=== PATIENT | male | born 1950 | race Caucasian/White ===

== ENCOUNTER 2016-07-14 04:41 | Inpatient (IN) | payer OTHER, MEDICARE ==
[~2016-07-14] VITALS: Ht 172.7 cm; Wt 73.0 kg
[2016-07-14] VITALS (7 sets, daily range): BP systolic 126–242; BP diastolic 73–136; PULSE 67–92; RESP 14–26; TEMP 97.7–98.2; O2SAT 95–99
[~2016-07-14 04:41] MED LIST: ASPI1TAB69 PO; BUSP5TAB PO; CLON.2 PO; LISI-515 PO; MULTCAP14
--- NOTE | 2016-07-14 05:39 | PD ---
HPI Chief Complaint: Neuro Symptoms/ Deficits Time Seen by Provider: 05:03 Travel History International Travel<30 days: No Contact w/Intl Traveler<30days: No Traveled to known affect area: No History of Present Illness HPI 66yo M with PMH of HTN here with c/o left arm and leg weakness and numbness for 3 days but worst for the last 2 hours. Pt also with some numbness in front of left ear. States he knew he had a stroke from a CT scan but it was a long time ago. Denies any fever, chest pain, sob, n/v, abdominal pain. Pt takes lisinopril and clonidine for HTN. PFSH Past Medical History Cancer: No Diminished Hearing: No Endocrine: No Genitourinary: No Hypertension: Yes Immune Disorder: No Musculoskeletal: No Neurologic: No Psychiatric: No Reproductive: No Respiratory: No Tetanus Vaccination: Unknown Influenza Vaccination: Yes Past Surgical History Surgical History: No Previous Surgery Social History Alcohol Use: Yes (occ) Tobacco Use: No Substance Use: No Allergies-Medications (Allergen,Severity, Reaction): Coded Allergies: No Known Allergies (Unverified , 12/22/15) Reported Meds & Prescriptions Reported Meds & Active Scripts Active Catapres (Clonidine) 0.2 Mg Tab 0.2 Mg PO BID Lisinopril 20 Mg Tab 20 Mg PO Q12HR Buspirone (Buspirone HCl) 5 Mg Tab 7.5 Mg PO BID Review of Systems Except as stated in HPI: all other systems reviewed are Neg Physical Exam Narrative GENERAL: 66yo M not in distress. SKIN: Focused skin assessment warm/dry. HEAD: Atraumatic. Normocephalic. EYES: Pupils equal and round at 3mm bilaterally. EOMI. No scleral icterus. No injection or drainage. CARDIOVASCULAR: Regular rate and rhythm. No murmur appreciated. RESPIRATORY: No accessory muscle use. Clear to auscultation. Breath sounds equal bilaterally. GASTROINTESTINAL: Abdomen soft, non-tender, nondistended. Hepatic and splenic margins not palpable. MUSCULOSKELETAL: No obvious deformities. No clubbing. No cyanosis. No edema. NEUROLOGICAL: Awake and alert. No obvious cranial nerve deficits. Motor grossly within normal limits. Normal speech. Decreased sensation in left arm and leg. Decreased sensation in left preauricular space. PSYCHIATRIC: Appropriate mood and affect; insight and judgment normal. Data Data Last Documented VS Vital Signs Date Time Temp Pulse Resp B/P Pulse Ox O2 Delivery O2 Flow Rate FiO2 07/14/16 06:28 86 14 192/98 98 Room Air 07/14/16 04:[address] Brain W/O Iv Contrast(Rout) (07/14/16 ) Complete Blood Count With Diff (07/14/16 05:15) Basic Metabolic Panel (Bmp) (07/14/16 05:15) Prothrombin Time / Inr (Pt) (07/14/16 05:15) Act Partial Throm Time (Ptt) (07/14/16 05:15) Lisinopril (Prinivil) (07/14/16 06:30) Admit Order (Ed Use Only) (07/14/16 06:52) Aspirin (Aspirin) (07/14/16 07:00) Consult Neurology (07/14/16 ) Labs Laboratory Tests Test 07/14/16 05:20 White Blood Count 8.3 TH/MM3 Red Blood Count 5.28 MIL/MM3 Hemoglobin 17.2 GM/DL Hematocrit 50.4 % Mean Corpuscular Volume 95.5 FL Mean Corpuscular Hemoglobin 32.5 PG Mean Corpuscular Hemoglobin 34.1 % Concent Red Cell Distribution Width 12.4 % Platelet Count 188 TH/MM3 Mean Platelet Volume 8.5 FL Neutrophils (%) (Auto) 65.7 % Lymphocytes (%) (Auto) 23.3 % Monocytes (%) (Auto) 9.2 % Eosinophils (%) (Auto) 1.3 % Basophils (%) (Auto) 0.5 % Neutrophils # (Auto) 5.4 TH/MM3 Lymphocytes # (Auto) 1.9 TH/MM3 Monocytes # (Auto) 0.8 TH/MM3 Eosinophils # (Auto) 0.1 TH/MM3 Basophils # (Auto) 0.0 TH/MM3 CBC Comment DIFF FINAL Differential Comment Prothrombin Time 11.6 SEC Prothromb Time International 1.0 RATIO Ratio Activated Partial 27.5 SEC Thromboplast Time Sodium Level 139 MEQ/L Potassium Level 4.1 MEQ/L Chloride Level 104 MEQ/L Carbon Dioxide Level 26.3 MEQ/L Anion Gap 9 MEQ/L Blood Urea Nitrogen 11 MG/DL Creatinine 0.86 MG/DL Estimat Glomerular Filtration 89 ML/MIN Rate Random Glucose 116 MG/DL Calcium Level 9.1 MG/DL MDM Medical Decision Making Medical Screen Exam Complete: Yes Emergency Medical Condition: Yes Differential Diagnosis CVA vs. hypertensive emergency vs. electrolyte abnormality Narrative Course 66yo M with left arm and leg weakness and numbness for 3 days but worst 2 hours prior to coming to the ED. Initial BP was 242/136 and repeat BP was 192/98. Pt states he takes clonidine 0.2mg BID and lisinopril 20mg BID and took his clonidine this morning but not lisinopril. Will give him his morning dose of lisinopril. Labs reviewed, no leukocytosis. BMP unremarkable. Glucose 116. Discussed with Dr. Orona and accepted to his service for CVA work up. Diagnosis Primary Impression: TIA (transient ischemic attack) Qualified Code: G45.9 - Transient cerebral ischemia, unspecified type Admitting Information Admitting Physician Requests: Mirlande Pardo DO Jul 14, 2016 05:38
[2016-07-14 06:16] LABS: AUTOMATED NEUTROPHIL # 5.4 TH/MM3 (1.8-7.7); BASOPHIL % 0.5 % (0.0-2.0); EOSINOPHIL # 0.1 TH/MM3 (0-0.4); EOSINOPHIL % 1.3 % (0.0-4.0); HEMATOCRIT 50.4 % (39.0-51.0); HEMO FLAGS DIFF FINAL; LYMPH % 23.3 % (9.0-44.0); LYMPHOCYTE # 1.9 TH/MM3 (1.0-4.8); MEAN CELL VOLUME 95.5 FL (80.0-100.0); MEAN CORPUSCULAR HEMOGLOBIN 32.5 PG (27.0-34.0); MEAN CORPUSCULAR HGB CONC 34.1 % (32.0-36.0); MONO % 9.2 % (0.0-8.0); NEUT % 65.7 % (16.0-70.0); PLATELET COUNT 188 TH/MM3 (150-450); RED BLOOD COUNT 5.28 MIL/MM3 (4.50-5.90); RED CELL DISTRIBUTION WIDTH 12.4 % (11.6-17.2); WHITE BLOOD COUNT 8.3 TH/MM3 (4.0-11.0)
[2016-07-14 06:23] LABS: APTT (PATIENT) 27.5 SEC (24.3-30.1); PROTHROMBIN TIME - PATIENT 11.6 SEC (9.8-11.6)
[2016-07-14 06:28] LABS: BICARBONATE 26.3 MEQ/L (21.0-32.0); POTASSIUM 4.1 MEQ/L (3.5-5.1)
[2016-07-14] MEDS ORDERED: LISINOPRIL 20 MG TAB PO ONE (06:30)
--- NOTE | 2016-07-14 06:44 | RADRPT ---
EXAM DATE/TIME: 07/14/2016 05:56 [facility] COMPARISON: CT BRAIN W/O CONTRAST, December 22, 2015, 15:55. INDICATIONS : Left side facial weakness. RADIATION DOSE: 41.46 CTDIvol (mGy) MEDICAL HISTORY : Hypertension. SURGICAL HISTORY : None. ENCOUNTER: Initial ACUITY: 1 day PAIN SCALE: 0/10 LOCATION: cranial TECHNIQUE: Multiple contiguous axial images were obtained of the head. Using automated exposure control and adj ustment of the mA and/or kV according to patient size, radiation dose was kept as low as reasonably a chievable to obtain optimal diagnostic quality images. FINDINGS: CEREBRUM: The ventricles are normal for age. No evidence of midline shift, mass lesion, hemorrhage or acute in farction. 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 No extra-axial fluid collections are seen. POSTERIOR FOSSA: The cerebellum and brainstem are intact. The 4th ventricle is midline. The cerebellopontine angle i s unremarkable. EXTRACRANIAL: The visualized portion of the orbits is intact. SKULL: The calvaria is intact. No evidence of skull fracture. CONCLUSION: Normal examination. No evidence of acute hemorrhage or edema Helder Newby MD on July 14, 2016 at 6:41 Board Certified Radiologist. This report was verified electronically.
[2016-07-14] MEDS ORDERED: ASPIRIN 325 MG TAB PO ONE (07:00)
[2016-07-14] MEDS ORDERED: SODIUM CHLORIDE 0.9% FLUSH 5 ML FLUSH IV FLUSH PRN ×2 (07:15→12:15)
[2016-07-14] MEDS ORDERED: DEXTROSE 50% IN WATER 50 ML VIAL(D50) IV PUSH PRN ×2 (07:15→12:15)
[2016-07-14] MEDS ORDERED: LABETALOL HCL 100 MG/20 ML VIAL IV PRN (07:15)
[2016-07-14] MEDS ORDERED: ENALAPRILAT 1.25 MG/ML VIAL IV PRN (07:15)
[2016-07-14] MEDS ORDERED: GLUCAGON 1 MG/ML VIAL OTHER PRN ×2 (07:15→12:15)
[2016-07-14] MEDS ORDERED: SODIUM CHLORIDE 0.9% FLUSH 5 ML FLUSH IV FLUSH SCH (09:00)
--- NOTE | 2016-07-14 10:33 | RADRPT ---
EXAM DATE/TIME: 07/14/2016 10:05 [facility] COMPARISON: No previous studies available for comparison. INDICATIONS : Left sided weakness. CVA. MEDICAL HISTORY : Hypertension. SURGICAL HISTORY : None. ENCOUNTER: Subsequent ACUITY: 1 day PAIN SCORE: 0/10 LOCATION: head. Please note a normal MRA of the brain does not entirely exclude the possibility of a small aneurysm, nor the possibility of distal intracranial vessel disease. TECHNIQUE: 3D time of flight MRA was performed. Source images, multiplanar STS MIP, and 3D volume MIP reconstru ctions were reviewed. FINDINGS: Both distal internal carotid arteries are widely patent. The right vertebral artery is not identified. The left vertebral is patent. The basilar statement. Th ere is an area of mild stenosis at the junction of the left vertebral with the basilar. The anterior and middle cerebral circulation is patent bilaterally. Both posterior cerebral arteries feed predominantly from the posterior communicating arteries. CONCLUSION: 1. Nonvisualization of the right vertebral. 2. Mild stenosis at the junction of the left vert and basilar. 3. The intracranial circulation appears patent. Vicente Bowens MD on July 14, 2016 at 10:28 Board Certified Radiologist. This report was verified electronically.
[2016-07-14] MEDS ORDERED: INSULIN ASPART SUPPLEMENTAL SCALE SQ SCH (11:00)
[2016-07-14] MEDS: ASPIRIN 325 MG TAB PO SCH (11:07)
[2016-07-14] MEDS: HEPARIN SODIUM - SQ 10,000 UNITS/ML VIAL SQ SCH ×2 (11:08→16:00)
--- NOTE | 2016-07-14 11:23 | HHI.HP ---
[facility] Non-Staff Admission Diagnosis CVA Diagnoses: Travel History International Travel<30 Days: No Contact w/Intl Traveler <30 Da: No Traveled to Known Affected Are: No History of Present Illness Mr. Levy is a 66-year-old male. He is here today secondary to an onset of left -sided weakness 3 days ago that worsened 2 hours prior to arrival to ER. The weakness is more related to diffuse numbness rather than we can motor function. She has felt unsteady on his feet. She does report a prior history of CVA but he was unaware of this and its only seen on imaging, without knowledge of when it occurred given he never had any symptoms. He was aware of this prior to this ER visit. He denies any alcohol use or illicit drug use. He has used tobacco but quit smoking 25 years ago. His only baseline medical condition is hypertension. He reports no surgeries or other medical conditions. When seen he is continuing to have numbness slightly more significantly at his left arm and left leg. She also reports left groin pain and left axilla pain. No complaints of dizziness. Nose changes in visual abilities. No headache. Blood pressures are elevated. Review of Systems Constitutional: DENIES: Diaphoretic episodes, Fatigue, Fever, Chills, Dizziness Endocrine: DENIES: Heat/cold intolerance, Polydipsia Eyes: DENIES: Blurred vision, Diplopia, Eye pain, Vision loss Ears, nose, mouth, throat: DENIES: Hearing loss, Vertigo Respiratory: DENIES: Cough, Wheezing, Shortness of breath Cardiovascular: DENIES: Chest pain, Palpitations, Syncope Gastrointestinal: DENIES: Abdominal pain, Black stools Musculoskeletal: DENIES: Joint pain, Muscle aches Integumentary: DENIES: Abnormal pigmentation, Nail changes Hematologic/lymphatic: DENIES: Bruising Immunologic/allergic: DENIES: Eczema Neurologic: COMPLAINS OF: Abnormal gait, Localized weakness, Paresthesias Psychiatric: DENIES: Anxiety, Confusion Past Family Social History Past Medical History Hypertension Past Surgical History None Reported Medications Reported Meds & Active Scripts Active Catapres (Clonidine) 0.2 Mg Tab 0.2 Mg PO BID Lisinopril 20 Mg Tab 20 Mg PO Q12HR Buspirone (Buspirone HCl) 5 Mg Tab 7.5 Mg PO BID Allergies: Coded Allergies: No Known Allergies (Unverified , 12/22/15) Family History None Social History Past history of smoking, not currently smoking. Quit 25 years ago. No alcohol use No drug abuse Physical Exam Vital Signs Vital Signs Date Time Temp Pulse Resp B/P Pulse Ox O2 Delivery O2 Flow Rate FiO2 07/14/16 09:20 97 21 07/14/16 07:44 76 16 190/99 99 Room Air 07/14/16 06:28 86 14 192/98 98 Room Air 07/14/16 04:46 16 07/14/16 04:44 97.7 92 16 242/136 98 Physical Exam GENERAL: NAD, A&Ox3 SKIN: Warm and dry. HEAD: Normocephalic. EYES: No scleral icterus. No injection or drainage. NECK: Supple, trachea midline. No JVD or lymphadenopathy. CARDIOVASCULAR: Regular rate and rhythm without murmurs, gallops, or rubs. RESPIRATORY: Breath sounds equal bilaterally. No accessory muscle use. GASTROINTESTINAL: Abdomen soft, non-tender, nondistended. MUSCULOSKELETAL: No cyanosis, or edema. NEURO: Sensation on left side including face, arm, and leg are decreased compared to right. Coordination is slightly off on left. No loss of strength that left side compared to the right. Laboratory Laboratory Tests Test 07/14/16 05:20 White Blood Count 8.3 Red Blood Count 5.28 Hemoglobin 17.2 Hematocrit 50.4 Mean Corpuscular Volume 95.5 Mean Corpuscular Hemoglobin 32.5 Mean Corpuscular Hemoglobin 34.1 Concent Red Cell Distribution Width 12.4 Platelet Count 188 Mean Platelet Volume 8.5 Neutrophils (%) (Auto) 65.7 Lymphocytes (%) (Auto) 23.3 Monocytes (%) (Auto) 9.2 Eosinophils (%) (Auto) 1.3 Basophils (%) (Auto) 0.5 Neutrophils # (Auto) 5.4 Lymphocytes # (Auto) 1.9 Monocytes # (Auto) 0.8 Eosinophils # (Auto) 0.1 Basophils # (Auto) 0.0 CBC Comment DIFF FINAL Differential Comment Prothrombin Time 11.6 Prothromb Time International 1.0 Ratio Activated Partial 27.5 Thromboplast Time Sodium Level 139 Potassium Level 4.1 Chloride Level 104 Carbon Dioxide Level 26.3 Anion Gap 9 Blood Urea Nitrogen 11 Creatinine 0.86 Estimat Glomerular Filtration 89 Rate Random Glucose 116 Calcium Level 9.1 Result Diagram: 07/14/1651907/14/16519 Assessment and Plan Problem List: (1) Hypertensive urgency ICD Code: I16.0 Status: Acute (2) Hyponatremia ICD Code: E87.1 Status: Acute (3) Left hemiparesis ICD Code: G81.94 Status: Acute Assessment and Plan Assessment and plan 66-year-old male with onset of left hemiparesis and hypertensive urgency Acute Left hemiparesis Possible acute CVA MRI Carotid ultrasound Echocardiogram Avoiding antihypertensives Avoiding blood thinners Begin physical therapy Hypertensive urgency Allow for elevations in blood pressure until possible CVA is evaluated. If no CVA is present will resume blood pressure treatments and regain blood pressure control. DVT prophylaxis SCDs Physician Certification 2 Midnight Certification Type: Admission for Inpatient Services Order for Inpatient Services The services are ordered in accordance with Medicare regulations or non- Medicare payer requirements, as applicable. In the case of services not specified as inpatient-only, they are appropriately provided as inpatient services in accordance with the 2-midnight benchmark. Estimated LOS (days): 2 days is the estimated time the patient will need to remain in the hospital, assuming treatment plan goals are met and no additional complications. Post-Hospital Plan: Home Vicente Ramos MD Jul 14, 2016 11:23 am
--- NOTE | 2016-07-14 12:08 | RADRPT ---
EXAM DATE/TIME: 07/14/2016 09:36 [facility] COMPARISON: No previous studies available for comparison. INDICATIONS : Cerebrovascular accident. MEDICAL HISTORY : Hypertension. Left arm and leg weakness. SURGICAL HISTORY : None. ENCOUNTER: Initial ACUITY: 4-6 days PAIN SCORE: 4/10 LOCATION: Bilateral neck PEAK SYSTOLIC VELOCITIES (cm/sec): ICA/CCA RATIO: Right: 2.6 Left: 1.2 ICA: Right: 212 Left: 110 CCA: Right: 104 Left: 91 ECA: Right: 154 Left: 130 VERTEBRAL: Right: 41 antegrade Left: 77 antegrade Elevated flow velocities and ICA/CCA ratios have been found to correlate with increased degrees of vessel stenosis, calculated as percentage of diameter relative to a normal segment of distal ICA/CCA FINDINGS: RIGHT CAROTID: Bulky noncalcified plaque extending from the bulb to the origin of the internal carotid artery. Resul tant moderate, 50-69%, stenosis of the proximal internal carotid artery. There is also mild to modera te stenosis of the external carotid artery origin. LEFT CAROTID: Noncalcified plaque in the carotid bulb and distal common carotid artery. With minimal involvement of the internal and external carotid artery origins. Resultant, mild, estimated 50% stenosis of the int ernal carotid artery origin. There is also mild stenosis of the external carotid origin. VERTEBRAL ARTERIES: Antegrade flow is seen in both vertebral arteries. MISCELLANEOUS: None. CONCLUSION: 1. Moderate, 50-69%, stenosis of the proximal right internal carotid artery secondary to extension of bulky noncalcified plaque from the bulb. 2. Mild, less than 50%, stenosis of the proximal left internal carotid artery secondary to mixed plaq ue. 3. Mild left and mild to moderate right stenosis of the external carotid origins. Keanu Page MD on July 14, 2016 at 11:02 Board Certified Radiologist. This report was verified electronically.
[2016-07-14] MEDS ORDERED: CHLORHEXIDINE GLUCONATE 2 % 1 PACK (2 CLOTHS)(extra cloths) TOPICAL PRN (12:15)
--- NOTE | 2016-07-14 12:17 | RADRPT ---
EXAM DATE/TIME: 07/14/2016 10:05 [facility] COMPARISON: No previous studies available for comparison. INDICATIONS : Left sided weakness. CVA. MEDICAL HISTORY : Hypertension. SURGICAL HISTORY : None. ENCOUNTER: Subsequent ACUITY: 2 day PAIN SCORE: 0/10 LOCATION: head. TECHNIQUE: Multiplanar, multisequence MRI of the brain was performed without contrast. FINDINGS: CEREBRUM: The ventricles are normal for age. No evidence of midline shift, mass lesion, hemorrhage or acute in farction. No extraaxial fluid collections are seen. The pituitary gland and suprasellar cistern are normal in configuration. WHITE MATTER: Scattered foci of high flair signal involving the periventricular white matter of both cerebral hemis pheres. POSTERIOR FOSSA: The cerebellum and brainstem are intact. The 4th ventricle is midline. The cerebellopontine angle is unremarkable. The cerebellar tonsils are normal in position. DIFFUSION IMAGING: No focal areas of restricted diffusion are seen. No evidence of acute infarction. EXTRACRANIAL: The visualized portions of the orbits are unremarkable. Mucosal thickening is seen involving the righ t maxillary sinus resulting in near complete opacification. The remaining paranasal sinuses and masto id air cells are clear. CONCLUSION: 1. No acute intracranial abnormality. 2. Chronic small vessel ischemic change. 3. Right maxillary sinus disease. Kamar Jha Jr., MD on July 14, 2016 at 12:11 Board Certified Radiologist. This report was verified electronically.
--- NOTE | 2016-07-14 12:44 | MB ---
cc: HENRIK SPEAR M.D. DATE OF CONSULTATION: 07/14/2016 REASON FOR CONSULTATION Rule out stroke. HISTORY OF PRESENT ILLNESS Mr. Levy is a very nice 66-year-old man, who three days ago began to notice numbness involving the left arm and left leg as well as part of the left face. He thought he had some weakness on the left side but felt this might have been only secondary to the numbness. When he would take his antihypertensive medication he states the symptoms got better. He was showing some signs of progression earlier today as well. PAST MEDICAL HISTORY He has a history of hypertension. No prior history of stroke or TIA. MEDICATIONS 1. Catapres. 2. Lisinopril. 3. Buspirone. ALLERGIES None known. SOCIAL HISTORY No alcohol use or drug abuse. He stopped smoking 25 years ago. NEUROLOGIC EXAMINATION VITAL SIGNS: The blood pressure is 203/99, pulse 76, respirations 16, temperature 97 degrees. Higher cortical functions are normal. Cranial nerves intact. Motor exam he has 5/5 strength of all groups in the upper and lower extremities. There is no drift. Fine motor skills are normal. Sensory exam is subjectively diminished left arm and left leg to soft touch compared with right, reflexes are 2+ symmetric with no Babinski sign present. IMAGING STUDIES MRI of the brain is pending. Carotid ultrasound pending. CT of the brain showed no acute change. MR angiogram of the brain: Nonvisualization of the right vertebral artery, mild stenosis on the left vertebral basilar juncture, otherwise normal. LABORATORY DATA White count 8300, hemoglobin 17.2, hematocrit 50.4%, platelets 188,000. PT 11.6, INR 1, APTT 27.5. Sodium is 139, potassium 4.1, chloride 104, CO2 26, BUN is 11, creatinine 0.86, GFR is 89, glucose 116. IMPRESSION Possible lacunar stroke. RECOMMENDATIONS Will follow up on the MRI of the brain and also check carotid ultrasound, echocardiogram. Continue aspirin which has been started at 325 mg daily. Will check a lipid panel as well. MD MIR Blanco/YUMIKO /12:06 PM /12:30 PM
[2016-07-14] MEDS ORDERED: cloNIDine HCL 0.1 MG TAB PO PRN (13:15)
[2016-07-14] MEDS ORDERED: LISINOPRIL 20 MG TAB PO SCH (13:15)
[2016-07-14] MEDS ORDERED: PILL SPLITTER OTHER PRN (13:15)
[2016-07-14] MEDS: busPIRone HCL 5 MG TAB PO SCH ×2 (13:37→20:32)
[2016-07-14] MEDS: cloNIDine HCL 0.2 MG TAB PO SCH ×2 (13:39→20:33)
[2016-07-14] MEDS: INSULIN ASPART SUPPLEMENTAL SCALE SQ SCH ×2 (16:00→20:33)
[2016-07-14 18:39] LABS: HEMOGLOBIN A1a 0.7 %; HEMOGLOBIN A1b 1.6 %; HEMOGLOBIN Ao 87.1 %; HEMOGLOBIN LA1C 1.8 %; HEMOGLOBIN P3 3.3 %
[2016-07-14] MEDS: SODIUM CHLORIDE 0.9% FLUSH 5 ML FLUSH IV FLUSH SCH (20:32)
[2016-07-14] MEDS: ATORVASTATIN 10 MG TAB PO SCH (20:33)
[2016-07-14] MEDS: LISINOPRIL 20 MG TAB PO SCH (20:33)
[2016-07-15] VITALS (13 sets, daily range): BP systolic 123–208; BP diastolic 58–107; PULSE 65–96; RESP 16–25; TEMP 97.6–98.9; O2SAT 93–98
[2016-07-15] MEDS: HEPARIN SODIUM - SQ 10,000 UNITS/ML VIAL SQ SCH ×4 (00:15→23:36)
[2016-07-15] MEDS: CHLORHEXIDINE GLUCONATE 2 % 1 PACK (2 CLOTHS)(taper/protocol) TOPICAL SCH (04:00)
[2016-07-15 06:02] LABS: HDL CHOLESTEROL 37.5 MG/DL (40.0-60.0)
[2016-07-15] MEDS: INSULIN ASPART SUPPLEMENTAL SCALE SQ SCH ×4 (06:37→21:15)
[2016-07-15] MEDS: LISINOPRIL 20 MG TAB PO SCH (08:22)
[2016-07-15] MEDS: ASPIRIN 325 MG TAB PO SCH (08:22)
[2016-07-15] MEDS: busPIRone HCL 5 MG TAB PO SCH ×2 (08:22→21:12)
[2016-07-15] MEDS: SODIUM CHLORIDE 0.9% FLUSH 5 ML FLUSH IV FLUSH SCH ×2 (08:23→21:12)
[2016-07-15] MEDS: cloNIDine HCL 0.2 MG TAB PO SCH ×2 (08:23→21:12)
--- NOTE | 2016-07-15 09:58 | ECHRPT ---
Indication: Personal history of transient ischemic attack (TIA), and cerebral infarction without r esidual deficits Indication: Personal history of transient ischemic attack (TIA), and cerebral infarction without r esidual deficits CONCLUSIONS Normal left ventricular size. Mild concentric left ventricular hypertrophy. The left ventricular sys tolic function is normal with an estimated ejection fraction in the range of 60-65%. No regional wall jannie on abnormalities are present. Doppler parameters are consistent with impaired left ventricular relaxtio n (grade 1 diastolic dysfunction). BP: 190 / 99 HR: 76 Rhythm: Sinus MEASUREMENTS (Male / Female) Normal Values Technical Quality:Fair 2D ECHO LV Diastolic Diameter PLAX 3.9 cm 4.2 - 5.9 / 3.9 - 5.3 cm LV Systolic Diameter PLAX 2.8 cm IVS Diastolic Thickness 1.2 cm 0.6 - 1.0 / 0.6 - 0.9 cm LVPW Diastolic Thickness 1.2 cm 0.6 - 1.0 / 0.6 - 0.9 cm LV Relative Wall Thickness 0.6 LVOT Diameter 2.1 cm Aortic Root Diameter 3.4 cm LA Systolic Diameter LX 2.7 cm 3.0 - 4.0 / 2.7 - 3.8 cm M-MODE AV Cusp Separation MM 2.1 cm DOPPLER AV Peak Velocity 91.0 cm/s AV Peak Gradient 3.3 mmHg AV Mean Gradient 2.0 mmHg AV Velocity Time Integral 17.3 cm LVOT Peak Velocity 70.2 cm/s LVOT Peak Gradient 2.0 mmHg LVOT Velocity Time Integral 12.4 cm LVOT Cardiac Index 1766.4 cm/minm AV Area Cont Eq vti 2.5 cm AV Area Cont Eq pk 2.7 cm Mitral E Point Velocity 56.2 cm/s Mitral A Point Velocity 62.5 cm/s Mitral E to A Ratio 0.9 LV E' Lateral Velocity 6.5 cm/s Mitral E to LV E' Lateral Ratio 8.6 LV E' Septal Velocity 4.6 cm/s Mitral E to LV E' Septal Ratio 12.3 FINDINGS Left Ventricle Normal left ventricular size. Mild concentric left ventricular hypertrophy. The left ventricular sys tolic function is normal with an estimated ejection fraction in the range of 60-65%. No regional wall jannie on abnormalities are present. Doppler parameters are consistent with impaired left ventricular relaxtio n (grade 1 diastolic dysfunction). Pericardium There is a trace to small pericardial effusion present. Mark Regan MD (Electronically Signed) Final Date:15 July 2016 09:57
[2016-07-15] MEDS ORDERED: LORazepam 0.5 MG TAB PO PRN (14:45)
[2016-07-15] MEDS: HYDROCHLOROTHIAZIDE 25 MG TAB PO SCH (15:00)
--- NOTE | 2016-07-15 15:07 | HHI.PR ---
Subjective Remarks Follow-up for possible CVA Patient workup is negative. Patient stated that he feels a lot of left-sided neck tightness and muscle tightness all over. He stated that he's been very stressed lately. Patient stated that he is trying to look for home. Patient also stated that he is very anxious. He wants to take a shower. Patient does not want to take lisinopril. He stated that he's been on lisinopril in the past where he developed cough. Patient does admit to having high blood pressure. Objective Vitals Vital Signs Date Time Temp Pulse Resp B/P Pulse Ox O2 Delivery O2 Flow Rate FiO2 07/15/16 14:00 85 07/15/16 12:00 90 07/15/16 12:00 97.9 90 22 208/107 94 07/15/16 10:00 80 07/15/16 08:00 98.6 88 22 195/104 94 07/15/16 08:00 79 07/15/16 06:00 73 07/15/16 04:00 67 07/15/16 04:00 98.9 67 25 161/77 95 07/15/16 02:00 66 07/15/16 00:00 65 07/15/16 00:00 98.0 65 22 123/58 93 07/14/16 22:14 95 21 07/14/16 22:00 67 07/14/16 20:00 77 07/14/16 20:00 98.2 77 26 126/73 95 I/O 07/14/16 07/14/16 07/14/16 07/15/16 07/15/16 07/15/16 06:59 14:59 22:59 06:59 14:59 22:59 Intake Total 240 ml 360 ml 240 ml Output Total 250 ml 300 ml 900 ml Balance -10 ml 60 ml -660 ml Intake Oral 240 ml 360 ml 240 ml Output Urine Total 250 ml 300 ml 900 ml # Voids 2 # Bowel Movements 1 Result Diagram: 07/14/16 0520 07/14/16 0520 Imaging Last Impressions Head Magnetic Resonance Angiography 07/14/16 0000 Signed Impressions: Service Date/Time: Thursday, July 14, 2016 10:05 - CONCLUSION: 1. Nonvisualization of the right vertebral. 2. Mild stenosis at the junction of the left vert and basilar. 3. The intracranial circulation appears patent. Vicente Bowens MD Head CT 07/14/16 0000 Signed Impressions: Service Date/Time: Thursday, July 14, 2016 05:56 - CONCLUSION: Normal examination. No evidence of acute hemorrhage or edema Helder Newby MD Carotid Artery Ultrasound 07/14/16 0000 Signed Impressions: Service Date/Time: Thursday, July 14, 2016 09:36 - CONCLUSION: 1. Moderate, 50-69%%, stenosis of the proximal right internal carotid artery secondary to extension of bulky noncalcified plaque from the bulb. 2. Mild, less than 50%%, stenosis of the proximal left internal carotid artery secondary to mixed plaque. 3. Mild left and mild to moderate right stenosis of the external carotid origins. Keanu Page MD Brain MRI 07/14/16 0000 Signed Impressions: Service Date/Time: Thursday, July 14, 2016 10:05 - CONCLUSION: 1. No acute intracranial abnormality. 2. Chronic small vessel ischemic change. 3. Right maxillary sinus disease. Kamar Jha Jr., MD Objective Remarks GENERAL: in NAD NECK: Supple, trachea midline. No JVD or lymphadenopathy. Muscle spasm of the neck muscle CARDIOVASCULAR: Regular rate and rhythm without murmurs, gallops, or rubs. RESPIRATORY: Breath sounds equal bilaterally. No accessory muscle use. GASTROINTESTINAL: Abdomen soft, non-tender, nondistended. MUSCULOSKELETAL: No cyanosis, or edema. Diffuse paraspinal muscle spasm the entire back. BACK: Nontender without obvious deformity. No CVA tenderness. Medications and IVs Current Medications Lisinopril (Prinivil) 20 mg ONCE ONCE PO Last administered on 07/14/16 06:47; Start 07/14/16 at 06:30; Stop 07/14/16 at 06:31; Status DC Aspirin (Aspirin) 325 mg ONCE ONCE PO ; Start 07/14/16 at 07:00; Stop 07/14/16 at 07:01; Status DC IV Flush (NS Flush) 2 ml BID IV FLUSH Last administered on 07/14/16 09:00; Start 07/14/16 at 09:00; Stop 07/14/16 at 12:11; Status DC IV Flush (NS Flush) 2 ml UNSCH PRN IV FLUSH FLUSH AFTER USING IV ACCESS; Start 07/14/16 at 07:15; Stop 07/14/16 at 12:11; Status DC Enalaprilat (Vasotec Inj) 1.25 mg Q4H PRN IV For SBP > 220 or DBP > 120 Last administered on 07/14/16 11:07; Start 07/14/16 at 07:15; Stop 07/15/16 at 14:45; Status DC Labetalol HCl (Trandate Inj) 10 mg Q2H PRN IV For SBP > 220 or DBP > 120 Last administered on 07/14/16 13:14; Start 07/14/16 at 07:15 Aspirin (Aspirin) 325 mg DAILY PO Last administered on 07/15/16 08:22; Start at 09:00 Atorvastatin Calcium (Lipitor) 10 mg HS PO Last administered on 07/14/16 20:33 ; Start 07/14/16 at 21:00 Insulin Aspart (NovoLOG SUPPLEMENTAL SCALE) 1 ACHS SQ ; Start 07/14/16 at 11:00; Stop 07/14/16 at 12:14; Status DC Dextrose (D50w (Vial) Inj) 50 ml UNSCH PRN IV PUSH HYPOGLYCEMIA-SEE COMMENTS; Start 07/14/16 at 07:15; Stop 07/14/16 at 12:13; Status DC Glucagon (Glucagon Inj) 1 mg UNSCH PRN OTHER HYPOGLYCEMIA-SEE COMMENTS; Start 07/14/16 at 07:15; Stop 07/14/16 at 12:13; Status DC Heparin Sodium (Porcine) (Heparin Inj) 5,000 units Q8H SQ Last administered on 07/15/16 08:23; Start 07/14/16 at 08:00 Miscellaneous Information Patient in critical care unit? Ass... Q361D .XX ; Start 07/14/16 at 12:15 Chlorhexidine Gluconate (Chlorhexidine 2% Cloth) 3 pack DAILY@04 TOPICAL Last administered on 07/15/16 04:00; Start 07/15/16 at 04:00; Stop 07/19/16 at 04:01 Chlorhexidine Gluconate (Chlorhexidine 2% Cloth) 3 pack UNSCH PRN TOPICAL HYGIENIC CARE; Start 07/14/16 at 12:15; Stop 07/19/16 at 12:02 IV Flush (NS Flush) 2 ml BID IV FLUSH Last administered on 07/15/16 08:23; Start 07/14/16 at 21:00 IV Flush (NS Flush) 2 ml UNSCH PRN IV FLUSH FLUSH AFTER USING IV ACCESS; Start 07/14/16 at 12:15 Insulin Aspart (NovoLOG SUPPLEMENTAL SCALE) 1 ACHS SQ ; Start 07/14/16 at 16:00 Dextrose (D50w (Vial) Inj) 50 ml UNSCH PRN IV PUSH HYPOGLYCEMIA-SEE COMMENTS; Start 07/14/16 at 12:15 Glucagon (Glucagon Inj) 1 mg UNSCH PRN OTHER HYPOGLYCEMIA-SEE COMMENTS; Start 07/14/16 at 12:15 Buspirone HCl (Buspar) 7.5 mg BID PO Last administered on 07/15/16 08:22; Start 07/14/16 at 13:15 Clonidine (Catapres) 0.2 mg BID PO Last administered on 07/15/16 08:23; Start 07/14/16 at 13:15 Lisinopril (Prinivil) 20 mg Q12HR PO ; Start 07/14/16 at 13:15; Stop 07/14/16 at 13:15; Status DC Clonidine (Catapres) 0.1 mg Q6H PRN PO SBP>160, DBP>90; Start 07/14/16 at 13:15 Miscellaneous (Pill Splitter) 1 ea UNSCH PRN OTHER SEE LABEL COMMENTS Last administered on 07/14/16 20:34; Start 07/14/16 at 13:15 Lisinopril (Prinivil) 20 mg Q12HR PO Last administered on 07/15/16 08:22; Start 07/14/16 at 21:00; Stop 07/15/16 at 14:47; Status DC Cyclobenzaprine HCl (Flexeril) 10 mg Q8HR PO ; Start 07/15/16 at 14:45; Status UNV Lorazepam (Ativan) 1 mg ONCE ONCE PO ; Start 07/15/16 at 14:45; Stop 07/15/16 at 14:46; Status UNV Lorazepam (Ativan) 0.5 mg Q12H PRN PO anxiety; Start 07/15/16 at 14:45; Status UNV Amlodipine Besylate (Norvasc) 10 mg DAILY PO ; Start 07/15/16 at 15:00; Status UNV A/P Problem List: (1) Hypertensive urgency ICD Code: I16.0 Status: Acute (2) Hyponatremia ICD Code: E87.1 Status: Acute (3) Left hemiparesis ICD Code: G81.94 Status: Acute Assessment and Plan 66-year-old male with onset of left sided numbness and stiffness Left-sided numbness and stiffness -Most likely secondary to stress and muscle spasms. -Patient was admitted for CVA rule out. Neurologist was consulted. MRI of the head negative for any CVA. Carotid ultrasound showed moderate, 50-69%%, stenosis of the proximal right internal carotid artery secondary to extension of bulky noncalcified plaque from the bulb and mild, less than 50%%, stenosis of the proximal left internal carotid artery secondary to mixed plaque. -Echo showed left ventricular hypertrophy with diastolic dysfunction and a normal EF. -Patient is on aspirin. -Will try Flexeril and Ativan to see if helps with symptoms. Hypertensive urgency -Initially allowed permissive hypertension due to CVA ruled out. -Cannot focus on blood pressure control since patient saw blood pressure is in the 200s. Patient does not want to be on any salima inhibitors due to symptoms of cough. Will discontinue enalapril and lisinopril. -Will add amlodipine and hydrochlorothiazide. Continue with labetalol and clonidine when necessary. -I predict if anxiety is better control his blood pressure should also be improved. Stress/Anxiety -Patient was started on BuSpar. -Will give Ativan when necessary. DVT prophylaxis SCDs Discharge Planning Patient will require continual hospitalization due to hypertensive urgency. Radha Atkinson MD Jul 15, 2016 15:07
[2016-07-15] MEDS ORDERED: LORazepam 1 MG TAB PO ONE (15:30)
[2016-07-15] MEDS: CYCLOBENZAPRINE HCL 10 MG TAB PO SCH ×2 (16:54→21:12)
--- NOTE | 2016-07-15 19:31 | HHI.PR ---
Review/Management Diagnosis right carotid stenosis ? TIA vs hypertensive encephalopathy Plan CTA carotids and brain. If CTA confirms significant right carotid stenosis of > 70% recommend vascular surgery consult Diagnosis/Plan: Subjective Subjective Comments States has had intermittent numbness left arm and leg. denies weakness Active Medications Current Medications Medications (Trade) Dose Ordered Sig/Aquilino Route Start Time Stop Time Status Last Admin (Trandate Inj) 10 mg Q2H PRN IV 07/14/16 07:15 07/14/16 13:14 (Aspirin) 325 mg DAILY PO 07/14/16 09:00 07/15/16 08:22 (Lipitor) 10 mg HS PO 07/14/16 21:00 07/14/16 20:33 (Heparin Inj) 5,000 units Q8H SQ 07/14/16 08:00 07/15/16 15:45 Miscellaneous Information Patient in critical care unit? Ass... Q361D .XX 07/14/16 12:15 (Chlorhexidine 2% Cloth) 3 pack DAILY@04 TOPICAL 07/15/16 04:00 07/19/16 04:01 07/15/16 04:00 (Chlorhexidine 2% Cloth) 3 pack UNSCH PRN TOPICAL 07/14/16 12:15 07/19/16 12:02 (NS Flush) 2 ml BID IV FLUSH 07/14/16 21:00 07/15/16 08:23 (NS Flush) 2 ml UNSCH PRN IV FLUSH 07/14/16 12:15 (NovoLOG SUPPLEMENTAL SCALE) 1 ACHS SQ 07/14/16 16:00 (D50w (Vial) Inj) 50 ml UNSCH PRN IV PUSH 07/14/16 12:15 (Glucagon Inj) 1 mg UNSCH PRN OTHER 07/14/16 12:15 (Buspar) 7.5 mg BID PO 07/14/16 13:15 07/15/16 08:22 (Catapres) 0.2 mg BID PO 07/14/16 13:15 07/15/16 08:23 (Catapres) 0.1 mg Q6H PRN PO 07/14/16 13:15 (Pill Splitter) 1 ea UNSCH PRN OTHER 07/14/16 13:15 07/14/16 20:34 (Flexeril) 10 mg Q8HR PO 07/15/16 15:00 07/15/16 16:54 (Ativan) 0.5 mg Q12H PRN PO 07/15/16 14:45 (Norvasc) 10 mg DAILY PO 07/15/16 15:00 07/15/16 15:42 (Hydrodiuril) 25 mg DAILY PO 07/15/16 15:00 Allergies Allergies Coded Allergies Lisinopril (Verified Allergy, Unknown, 07/15/16) Exam I&O / VS 07/14/16 07/14/16 07/15/16 15:00 23:00 07:00 Intake Total 240 ml 360 ml 240 ml Output Total 250 ml 300 ml 900 ml Balance -10 ml 60 ml -660 ml Intake Oral 240 ml 360 ml 240 ml Output Urine Total 250 ml 300 ml 900 ml # Voids 2 # Bowel Movements 1 Vital Signs Date Time Temp Pulse Resp B/P Pulse Ox O2 Delivery O2 Flow Rate FiO2 07/15/16 18:00 86 07/15/16 16:00 82 07/15/16 16:00 98.0 77 16 160/93 98 07/15/16 16:00 85 07/15/16 14:00 85 07/15/16 12:00 90 07/15/16 12:00 97.9 90 22 208/107 94 07/15/16 10:00 80 07/15/16 08:00 98.6 88 22 195/104 94 07/15/16 08:00 79 07/15/16 07:16 94 21 07/15/16 06:00 73 07/15/16 04:00 67 07/15/16 04:00 98.9 67 25 161/77 95 07/15/16 02:00 66 07/15/16 00:00 65 07/15/16 00:00 98.0 65 22 123/58 93 07/14/16 22:14 95 21 07/14/16 22:00 67 07/14/16 20:00 77 07/14/16 20:00 98.2 77 26 126/73 95 Exam Comments alert, speech normal CN intact Motor 5/5 BUE and BLE. sens--normal Objective Radiology Results MRI brain normal carotid US 50-69 % right carotid stenosis echo--nl Micro and Labs Laboratory Tests Test 07/15/16 04:31 Triglycerides Level 164 Cholesterol Level 187 LDL Cholesterol 117 HDL Cholesterol 37.5 Cholesterol/HDL Ratio 4.98 Moiz Patrick PhD Jul 15, 2016 19:31
[2016-07-15] MEDS: ATORVASTATIN 10 MG TAB PO SCH (21:12)
[2016-07-16] VITALS (12 sets, daily range): BP systolic 112–169; BP diastolic 58–84; PULSE 68–121; RESP 13–21; TEMP 96–98.5; O2SAT 93–98
[2016-07-16] MEDS: CHLORHEXIDINE GLUCONATE 2 % 1 PACK (2 CLOTHS)(taper/protocol) TOPICAL SCH (04:00)
[2016-07-16] MEDS: CYCLOBENZAPRINE HCL 10 MG TAB PO SCH ×3 (06:06→22:26)
[2016-07-16] MEDS: INSULIN ASPART SUPPLEMENTAL SCALE SQ SCH ×4 (06:13→19:51)
[2016-07-16] MEDS: SODIUM CHLORIDE 0.9% FLUSH 5 ML FLUSH IV FLUSH SCH ×2 (09:00→19:52)
[2016-07-16] MEDS: HYDROCHLOROTHIAZIDE 25 MG TAB PO SCH (09:00)
[2016-07-16] MEDS: ASPIRIN 325 MG TAB PO SCH (09:05)
[2016-07-16] MEDS: busPIRone HCL 5 MG TAB PO SCH ×2 (09:06→19:51)
[2016-07-16] MEDS: HEPARIN SODIUM - SQ 10,000 UNITS/ML VIAL SQ SCH ×2 (09:07→16:24)
[2016-07-16] MEDS: cloNIDine HCL 0.2 MG TAB PO SCH ×2 (09:21→19:51)
--- NOTE | 2016-07-16 12:53 | HHI.PR ---
Subjective Remarks Patient alert. Because he states he has been waiting for a room with a shower. He suggests this has contributed to the rise in his blood pressure. He still endorse left-sided neck pain and some soreness involving the left side of his body. Objective Vitals Vital Signs Date Time Temp Pulse Resp B/P Pulse Ox O2 Delivery O2 Flow Rate FiO2 07/16/16 10:00 80 07/16/16 08:00 98.5 81 18 169/79 96 07/16/16 08:00 81 07/16/16 06:00 90 07/16/16 04:00 72 07/16/16 04:00 98.1 72 17 139/73 96 07/16/16 04:00 75 07/16/16 02:00 75 07/16/16 00:00 69 07/16/16 00:00 98.3 69 13 112/58 93 07/15/16 22:00 73 07/15/16 22:00 95 21 07/15/16 20:00 96 07/15/16 20:00 98.1 96 17 135/65 94 07/15/16 18:00 86 07/15/16 16:00 82 07/15/16 16:00 98.0 77 16 160/93 98 07/15/16 16:00 85 07/15/16 14:00 85 I/O 07/15/16 07/15/16 07/15/16 07/16/16 07/16/16 07/16/16 07:00 15:00 23:00 07:00 15:00 23:00 Intake Total 240 ml 480 ml 240 ml 100 ml Output Total 900 ml 800 ml 350 ml 500 ml Balance -660 ml -320 ml -110 ml -400 ml Intake Oral 240 ml 480 ml 240 ml 100 ml Output Urine Total 900 ml 800 ml 350 ml 500 ml # Voids 2 2 # Bowel Movements 1 Result Diagram: 07/14/16 0520 07/14/16 0520 Imaging Last Impressions Head Magnetic Resonance Angiography 07/14/16 0000 Signed Impressions: Service Date/Time: Thursday, July 14, 2016 10:05 - CONCLUSION: 1. Nonvisualization of the right vertebral. 2. Mild stenosis at the junction of the left vert and basilar. 3. The intracranial circulation appears patent. Vicente Bowens MD Head CT 6/7/17 0000 Signed Impressions: Service Date/Time: Thursday, July 14, 2016 05:56 - CONCLUSION: Normal examination. No evidence of acute hemorrhage or edema Helder Newby MD Carotid Artery Ultrasound 07/14/16 Signed Impressions: Service Date/Time: Thursday, July 14, 2016 09:36 - CONCLUSION: 1. Moderate, 50-69%%, stenosis of the proximal right internal carotid artery secondary to extension of bulky noncalcified plaque from the bulb. 2. Mild, less than 50%%, stenosis of the proximal left internal carotid artery secondary to mixed plaque. 3. Mild left and mild to moderate right stenosis of the external carotid origins. Keanu Page MD Brain MRI 07/14/16 Signed Impressions: Service Date/Time: Thursday, July 14, 2016 10:05 - CONCLUSION: 1. No acute intracranial abnormality. 2. Chronic small vessel ischemic change. 3. Right maxillary sinus disease. Kamar Jha Jr., MD Objective Remarks GENERAL: Normal-appearing male in NAD NECK: Supple, trachea midline. No JVD or lymphadenopathy. Muscle spasm of the neck muscle CARDIOVASCULAR: Regular rate and rhythm without murmurs, gallops, or rubs. RESPIRATORY: Breath sounds equal bilaterally. No accessory muscle use. GASTROINTESTINAL: Abdomen soft, non-tender, nondistended. MUSCULOSKELETAL: No cyanosis, or edema. Diffuse paraspinal muscle spasm involving the entire back. BACK: Nontender without obvious deformity. No CVA tenderness. A/P Problem List: (1) Hypertensive urgency ICD Code: I16.0 Status: Acute (2) Hyponatremia ICD Code: E87.1 Status: Acute (3) Left hemiparesis ICD Code: G81.94 Status: Acute Assessment and Plan 66-year-old male with onset of left sided numbness and stiffness Left-sided numbness and stiffness -Most likely secondary to stress and muscle spasms. -Patient was admitted for CVA rule out. Neurologist was consulted. MRI of the head negative for any CVA. Carotid ultrasound showed moderate, 50-69%%, stenosis of the proximal right internal carotid artery secondary to extension of bulky noncalcified plaque from the bulb and mild, less than 50%%, stenosis of the proximal left internal carotid artery secondary to mixed plaque. -Echo showed left ventricular hypertrophy with diastolic dysfunction and a normal EF. -Patient is on aspirin. -Continue Flexeril and Ativan. -Awaiting carotid CTA Hypertensive urgency -Initially allowed permissive hypertension due to CVA ruled out. Blood pressure much improved -Patient does not want to be on any salima inhibitors due to symptoms of cough. Patient refused hydrochlorothiazide. -Clonidine and amlodipine -Anxiety also contributing to uncontrolled blood pressure. Ativan as above. Stress/Anxiety -Patient was started on BuSpar. -Will give Ativan when necessary. DVT prophylaxis SCDs Discharge Planning Transfer to floor today. Possible discharge tomorrow based on results of the CTA. Armando Colon MD Jul 16, 2016 12:53
[2016-07-16] MEDS ORDERED: IOHEXOL 350 MG/ML 10 ML VIAL (for RAD DIAG) IV ONE (15:13)
--- NOTE | 2016-07-16 15:32 | PD.CONS ---
[facility] Service Rehabilitation Medicine Consult Requested By Reason for Consult Comprehensive rehabilitation evaluation. Primary Care Physician Non-Staff History of Present Illness Mr. Levy is a 66-year-old male who was in his usual state of health that consisted of independence until 07/14/16 when he presented due to acute weakness. Left-sided weakness 3 days ago that worsened 2 hours prior to arrival to ER. Work up showed possible TIA. No significant carotid stenosis. Therapies he was independent. PM&R has been consult for evaluation. Review of Systems Constitutional: DENIES: Fever Eyes: DENIES: Blurred vision, Diplopia Ears, nose, mouth, throat: DENIES: Hearing loss Respiratory: DENIES: Cough Cardiovascular: DENIES: Chest pain Gastrointestinal: DENIES: Abdominal pain Musculoskeletal: DENIES: Joint pain Integumentary: DENIES: Rash Hematologic/lymphatic: DENIES: Bruising Neurologic: DENIES: Abnormal gait Psychiatric: DENIES: Anxiety Past Family Social History Allergies: Coded Allergies: Lisinopril (Verified Allergy, Unknown, 07/15/16) cough Past Medical History Past Medical History Hypertension Past Surgical History Past Surgical History None Current Medications Current Medications Medications (Trade) Dose Ordered Sig/Aquilino Route Start Time Stop Time Status Last Admin (Trandate Inj) 10 mg Q2H PRN IV 07/14/16 07:15 07/14/16 13:14 (Aspirin) 325 mg DAILY PO 07/14/16 09:00 07/16/16 09:05 (Lipitor) 10 mg HS PO 07/14/16 21:00 07/15/16 21:12 (Heparin Inj) 5,000 units Q8H SQ 07/14/16 08:00 07/16/16 09:07 Miscellaneous Information Patient in critical care unit? Ass... Q361D .XX 07/14/16 12:15 (Chlorhexidine 2% Cloth) 3 pack DAILY@04 TOPICAL 07/15/16 04:00 07/19/16 04:01 07/16/16 04:00 (Chlorhexidine 2% Cloth) 3 pack UNSCH PRN TOPICAL 07/14/16 12:15 07/19/16 12:02 (NS Flush) 2 ml BID IV FLUSH 07/14/16 21:00 07/16/16 09:00 (NS Flush) 2 ml UNSCH PRN IV FLUSH 07/14/16 12:15 (NovoLOG SUPPLEMENTAL SCALE) 1 ACHS SQ 07/14/16 16:00 (D50w (Vial) Inj) 50 ml UNSCH PRN IV PUSH 07/14/16 12:15 (Glucagon Inj) 1 mg UNSCH PRN OTHER 07/14/16 12:15 (Buspar) 7.5 mg BID PO 07/14/16 13:15 07/16/16 09:06 (Catapres) 0.2 mg BID PO 07/14/16 13:15 07/16/16 09:21 (Catapres) 0.1 mg Q6H PRN PO 07/14/16 13:15 (Pill Splitter) 1 ea UNSCH PRN OTHER 07/14/16 13:15 07/14/16 20:34 (Flexeril) 10 mg Q8HR PO 07/15/16 15:00 07/16/16 13:46 (Norvasc) 10 mg DAILY PO 07/15/16 15:00 07/16/16 09:06 (Hydrodiuril) 25 mg DAILY PO 07/15/16 15:00 (Ativan) 1 mg Q6HR PRN PO 07/16/16 18:00 Family History Family History None Social History Social History Past history of smoking, not currently smoking. Quit 25 years ago. No alcohol use No drug abuse Exam I&O / VS 07/15/16 07/15/16 07/16/16 15:00 23:00 07:00 Intake Total 480 ml 240 ml 100 ml Output Total 800 ml 350 ml 500 ml Balance -320 ml -110 ml -400 ml Intake Oral 480 ml 240 ml 100 ml Output Urine Total 800 ml 350 ml 500 ml # Voids 2 # Bowel Movements 1 Vital Signs Date Time Temp Pulse Resp B/P Pulse Ox O2 Delivery O2 Flow Rate FiO2 07/16/16 10:00 80 07/16/16 08:00 98.5 81 18 169/79 96 07/16/16 08:00 81 07/16/16 07:22 97 21 07/16/16 06:00 90 07/16/16 04:00 72 07/16/16 04:00 98.1 72 17 139/73 96 07/16/16 04:00 75 07/16/16 02:00 75 07/16/16 00:00 69 07/16/16 00:00 98.3 69 13 112/58 93 07/15/16 22:00 73 07/15/16 22:00 95 21 07/15/16 20:00 96 07/15/16 20:00 98.1 96 17 135/65 94 07/15/16 18:00 86 07/15/16 16:00 82 07/15/16 16:00 98.0 77 16 160/93 98 07/15/16 16:00 85 General: No acute distress, Other (Follows commands) HEENT NC, AT Respiratory: Lungs CTA, Non-labored respirations Gastrointestinal: Positive Bowel Sounds, Non-Distended, Non-Tender Cardiovascular: Normal rate Skin: Other (No rash noted) Musculoskeletal: ROM (Full), Tenderness (None in the calf) Psychiatric: Cooperative Orientation: oriented to Self, oriented to Place Neurologic: Speech (Fluent) Assessment and Plan Diagnosis: (1) TIA (transient ischemic attack) Transient cerebral ischemia type: unspecified Qualified Code: G45.9 - Transient cerebral ischemia, unspecified type Plan 1. Continue with therapies while in the hospital. 2. Patient is very high level at this time and no need for inpatient rehab. Currently independent and walking about 200 feet. 3. Continue with recs as per Neurology. 4. Thanks for this consultation, call with any questions will sign off. Giuseppe Chen MD Jul 16, 2016 15:32
--- NOTE | 2016-07-16 16:22 | RADRPT ---
EXAM DATE/TIME: 07/16/2016 15:00 [facility] COMPARISON: No previous studies available for comparison. INDICATIONS : Abnormal ultrasound; evaluate for corotid stenosis. IV CONTRAST: 85 cc Omnipaque 350 (iohexol) IV ; Cumulative dose for multiple exams. RADIATION DOSE: 22.70 CTDIvol (mGy) MEDICAL HISTORY : Stroke. Cardiovascular disease Hypertension. SURGICAL HISTORY : None. ENCOUNTER: Initial ACUITY: 1 day PAIN SCALE: 3/10 LOCATION: Bilateral cranial TECHNIQUE: Volumetric scanning was performed using a multi-row detector CT scanner. The data was post processed with a variety of visualization algorithms including full volume maximum intensity projection, multi -planar sliding thin slab reformation, curved planar reformation, and surface rendering techniques. Using automated exposure control and adjustment of the mA and/or kV according to patient size, radiat ion dose was kept as low as reasonably achievable to obtain optimal diagnostic quality images. FINDINGS: There is excellent visualization of the major anterior intracranial arteries out to the second-order branch vessels. There is no evidence for aneurysm, vessel truncation or stenosis, and no evidence fo r vascular malformation. origin of the left [employer]PECTOR QUALITY ASSURANCE. The vertebral arteries are nearly codominant. The distal right vertebra l artery near the junction of the basilar is not visualized and is either critically stenosed or thro mbosed. Flow extends from the left vertebral artery to the basilar artery. However, there is at least a mild stenosis at the junction of the vertebral artery and basilar artery accentuated by tortuosity . Basilar artery is patent. Second order branch vessels of the posterior circulation are patent. No e vidence for aneurysm. There is grossly normal weston-white matter differentiation. Ventricles are midline and normal in size. No significant intra-or extra-axial fluid collections or gross focal mass. Cerebellum and midbrain a re grossly unremarkable. Changes of chronic sinusitis involving the right maxillary sinus. Remaining paranasal sinuses and mastoid air cells are clear. Calvarium is intact. CONCLUSION: 1. Critical stenosis versus occlusion of the very distal right vertebral artery. At least mild stenos is of the distal left vertebral artery at the junction of the basilar artery. 2. Otherwise, unremarkable CTA examination of the brain. 3. Chronic right maxillary sinusitis. Keanu Page MD on July 16, 2016 at 16:02 Board Certified Radiologist. This report was verified electronically.
--- NOTE | 2016-07-16 16:37 | RADRPT ---
EXAM DATE/TIME: 07/16/2016 15:00 [place] COMPARISON: US CAROTID ARTERIES, July 14, 2016, 9:36. INDICATIONS : Abnormal ultrasound; evaluate for carotid stenosis. IV CONTRAST: 85 cc Omnipaque 350 (iohexol) IV ; Cumulative dose for multiple exams. RADIATION DOSE: 22.70 CTDIvol (mGy) ; Combined studies MEDICAL HISTORY : Stroke. Cardiovascular disease Hypertension. SURGICAL HISTORY : None. ENCOUNTER: Initial ACUITY: 1 day PAIN SCALE: 3/10 LOCATION: Bilateral neck Elevated flow velocities and ICA/CCA ratios have been found to correlate with increased degrees of vessel stenosis, calculated as percentage of diameter relative to a normal segment of distal ICA/CCA. TECHNIQUE: Volumetric scanning was performed using a multirow detector CT scanner. The data was post processed with a variety of visualization algorithms including full-volume maximum intensity projection, multip lanar sliding thin-slab reformation, curved-planar reformation, and surface-rendering techniques. Us ing automated exposure control and adjustment of the mA and/or kV according to patient size, radiatio n dose was kept as low as reasonably achievable to obtain optimal diagnostic quality images. FINDINGS: AORTIC ARCH: Anatomic variant of the arch. Bovine configuration of the brachiocephalic and left common carotid art aggie. The left vertebral emanates directly from the arch. Arch vessels are all patent. However, there is a 70% ostial stenosis of the right subclavian artery. RIGHT CAROTID: The common carotid artery is intact. The carotid bulb has a normal configuration without ulceration o r narrowing. 50% ostial stenosis of the internal. The external carotid artery is intact.LEFT CAROTID : The common carotid artery is intact. The carotid bulb has a normal configuration without ulceration or narrowing. The internal carotid artery lumen is smooth without stenosis. The external carotid ar el is intact. VERTEBRALS: The patient is left vertebral dominant. In fact, the right vertebral appears to terminate proximal to the basilar. There does appear to be an approximate 50% stenosis in the distal left vertebral, howev er. CONCLUSION: 1. 50% ostial stenosis of the right internal carotid. Left carotid system is patent throughout. 2. 70% ostial stenosis of the right subclavian artery. 3. Left vertebral emanates directly from the aortic arch and appears to be the dominant vessel. Appro ximately 50% stenosis of the distal left vertebral. The right vertebral appears to terminate proximal to the basilar. Darnell Donald MD on July 16, 2016 at 16:19 Board Certified Radiologist. This report was verified electronically.
[2016-07-16] MEDS ORDERED: LORazepam 0.5 MG TAB PO PRN (18:00)
--- NOTE | 2016-07-16 18:04 | HM ---
Date Performed: 07/14/2016 Time Performed: 20:30:00 HOOKUP DATE: 07/14/16 08:30:00 PM Wed ANALYSIS START TIME: 07/14/2016 8:35:00 PM ANALYSIS END TIME: 07/15/2016 8:38:59 PM PATIENT AGE: 66 PATIENT HEIGHT PATIENT WEIGHT DRUG LIST PATIENT DIAGNOSIS: CVA TEST NARRATIVE: The patient's average heart rate was 80 BPM. Heart rates greater than 120 B PM were noted < 1% of the time. Heart rates less than 50 BPM were noted 2% of the time. No pause s exceeding 2.0 seconds were noted. 2 ventricular ectopics, which represented < 1% of the total b eat count, were noted. The highest ventricular ectopic frequency occurred from 10:00 PM to 11:00 PM Wed. During this time 1 VE(s) occurred. Ventricular ectopics were observed as 2 isolated beat(s) on ly. No couplets or runs were noted. 7563 supraventricular ectopics, which represented 7% of the total beat count, were noted. The highest supraventricular ectopic frequency occurred from 04:00 PM to 05:00 PM Rach[place]. During this time 1056 SVE(s) occurred. No episodes of ST depression (defined as -1.0 mm or more) were noted in channel 1. No episodes of ST depression (defined as -1.0 mm or more) were noted in channel 2. No episodes of ST depression (defined as -1.0 mm or more) were noted in ch elva 3. TEST INTERPRETATION: Sinus rhythm Frequent PACs Nonsustained atrial tachycardia Signed by : Aron Sandoval
--- NOTE | 2016-07-16 18:20 | HHI.PR ---
Review/Management Diagnosis possible TIA No evidence for significant right carotid stenosis Right subclavian stenosis--but clinically he does not have sx suggestive of subclavian steel syndrome. Plan continue asa. Diagnosis/Plan: Subjective Subjective Comments No acute events reported numbness on left side improved Active Medications Current Medications Medications (Trade) Dose Ordered Sig/Aquilino Route Start Time Stop Time Status Last Admin (Trandate Inj) 10 mg Q2H PRN IV 07/14/16 07:15 07/14/16 13:14 (Aspirin) 325 mg DAILY PO 07/14/16 09:00 07/16/16 09:05 (Lipitor) 10 mg HS PO 07/14/16 21:00 07/15/16 21:12 (Heparin Inj) 5,000 units Q8H SQ 07/14/16 08:00 07/16/16 16:24 Miscellaneous Information Patient in critical care unit? Ass... [id number] .XX 07/14/16 12:15 (Chlorhexidine 2% Cloth) 3 pack DAILY@04 TOPICAL 07/15/16 04:00 07/19/16 04:01 07/16/16 04:00 (Chlorhexidine 2% Cloth) 3 pack UNSCH PRN TOPICAL 07/14/16 12:15 07/19/16 12:02 (NS Flush) 2 ml BID IV FLUSH 07/14/16 21:00 07/16/16 09:00 (NS Flush) 2 ml UNSCH PRN IV FLUSH 07/14/16 12:15 (NovoLOG SUPPLEMENTAL SCALE) 1 ACHS SQ 07/14/16 16:00 (D50w (Vial) Inj) 50 ml UNSCH PRN IV PUSH 07/14/16 12:15 (Glucagon Inj) 1 mg UNSCH PRN OTHER 07/14/16 12:15 (Buspar) 7.5 mg BID PO 07/14/16 13:15 07/16/16 09:06 (Catapres) 0.2 mg BID PO 07/14/16 13:15 07/16/16 09:21 (Catapres) 0.1 mg Q6H PRN PO 07/14/16 13:15 (Pill Splitter) 1 ea UNSCH PRN OTHER 07/14/16 13:15 07/14/16 20:34 (Flexeril) 10 mg Q8HR PO 07/15/16 15:00 07/16/16 13:46 (Norvasc) 10 mg DAILY PO 07/15/16 15:00 07/16/16 09:06 (Hydrodiuril) 25 mg DAILY PO 07/15/16 15:00 (Ativan) 1 mg Q6HR PRN PO 07/16/16 18:00 Allergies Allergies Coded Allergies Lisinopril (Verified Allergy, Unknown, 07/15/16) Exam I&O / VS 07/15/16 07/15/16 07/16/16 15:00 23:00 07:00 Intake Total 480 ml 240 ml 100 ml Output Total 800 ml 350 ml 500 ml Balance -320 ml -110 ml -400 ml Intake Oral 480 ml 240 ml 100 ml Output Urine Total 800 ml 350 ml 500 ml # Voids 2 # Bowel Movements 1 Vital Signs Date Time Temp Pulse Resp B/P Pulse Ox O2 Delivery O2 Flow Rate FiO2 07/16/16 16:00 109 07/16/16 16:00 98.3 109 20 132/65 95 07/16/16 14:00 93 07/16/16 12:00 98.1 68 19 161/78 94 07/16/16 12:00 80 07/16/16 10:00 80 07/16/16 08:00 98.5 81 18 169/79 96 07/16/16 08:00 81 07/16/16 07:22 97 21 07/16/16 06:00 90 07/16/16 04:00 72 07/16/16 04:00 98.1 72 17 139/73 96 07/16/16 04:00 75 07/16/16 02:00 75 07/16/16 00:00 69 07/16/16 00:00 98.3 69 13 112/58 93 07/15/16 22:00 73 07/15/16 22:00 95 21 07/15/16 20:00 96 07/15/16 20:00 98.1 96 17 135/65 94 Exam Comments alert, speech normal CN intact Motor 5/5 BUE and BLE. sens--normal Objective Radiology Results CTA 50% right carotid stenosis. 70% right subclavian stenosis. right vertebral stenosis Moiz Patrick PhD Jul 16, 2016 18:20
[2016-07-16] MEDS: ATORVASTATIN 10 MG TAB PO SCH (19:50)
[2016-07-17] VITALS: BP 126/75; PULSE 70; RESP 18; TEMP 96.2; O2SAT 98
[2016-07-17] MEDS: HEPARIN SODIUM - SQ 10,000 UNITS/ML VIAL SQ SCH ×2 (01:06→09:03)
[2016-07-17] MEDS: CHLORHEXIDINE GLUCONATE 2 % 1 PACK (2 CLOTHS)(taper/protocol) TOPICAL SCH (04:00)
[2016-07-17] MEDS: CYCLOBENZAPRINE HCL 10 MG TAB PO SCH (06:26)
[2016-07-17 06:41] VITALS: BP 140/71; PULSE 72; RESP 18; TEMP 96.3; O2SAT 98
[2016-07-17 08:23] VITALS: BP 163/78; PULSE 81; RESP 20; TEMP 97.1; O2SAT 98
[2016-07-17] MEDS: SODIUM CHLORIDE 0.9% FLUSH 5 ML FLUSH IV FLUSH SCH (09:00)
[2016-07-17] MEDS: HYDROCHLOROTHIAZIDE 25 MG TAB PO SCH (09:00)
[2016-07-17] MEDS: cloNIDine HCL 0.2 MG TAB PO SCH (09:03)
[2016-07-17] MEDS: busPIRone HCL 5 MG TAB PO SCH (09:03)
[2016-07-17] MEDS: ASPIRIN 325 MG TAB PO SCH (09:03)
[2016-07-17 10:37] VITALS: PULSE 78
[2016-07-17 12:00] VITALS: BP 136/80; PULSE 74; RESP 20; TEMP 98.4; O2SAT 98
[2016-07-17] MEDS ORDERED: HYDR25TA5 PO (12:52)
[2016-07-17] MEDS ORDERED: LIPI10TA PO (12:52)
[2016-07-17] MEDS ORDERED: AMLO10 PO (12:52)
[2016-07-17] MEDS ORDERED: ASPI325T PO (12:52)
[2016-07-17] MEDS ORDERED: LORA-392 PO ×2 (12:52→12:53)
[2016-07-17] MEDS ORDERED: BUSP5TAB PO (12:52)
[2016-07-17] MEDS ORDERED: CLON.2 PO (12:52)
--- NOTE | 2016-07-17 12:53 | HHI.DCPOC ---
Discharge Care Plan Diagnosis: (1) Hypertensive urgency (2) Carotid stenosis (3) TIA (transient ischemic attack) Goals to Promote Your Health * To prevent worsening of your condition and complications * To maintain your health at the optimal level Directions to Meet Your Goals Take your medications as prescribed Follow your dietary instruction Follow activity as directed Keep your appointments as scheduled Take your immunizations and boosters as scheduled If your symptoms worsen call your PCP, if no PCP go to Urgent Care Center or Emergency Room Smoking is Dangerous to Your Health. Avoid second hand smoke Call the 24-hour hour crisis hotline for domestic abuse at Armando Colon MD Jul 17, 2016 12:53
--- NOTE | 2016-07-17 12:54 | HHI.DS ---
Discharge Summary Admission Date Jul 14, 2016 at 07:49 Discharge Date: Jul 17, 2016 Admitting Diagnosis CVA (1) Hypertensive urgency ICD Code: I16.0 (2) Hyponatremia ICD Code: E87.1 (3) Left hemiparesis ICD Code: G81.94 Procedures None Brief History - From Admission History of present illness from the admitting physician Mr. Levy is a 66-year-old male. He is here today secondary to an onset of left -sided weakness 3 days ago that worsened 2 hours prior to arrival to ER. The weakness is more related to diffuse numbness rather than we can motor function. She has felt unsteady on his feet. She does report a prior history of CVA but he was unaware of this and its only seen on imaging, without knowledge of when it occurred given he never had any symptoms. He was aware of this prior to this ER visit. He denies any alcohol use or illicit drug use. He has used tobacco but quit smoking 25 years ago. His only baseline medical condition is hypertension. He reports no surgeries or other medical conditions. When seen he is continuing to have numbness slightly more significantly at his left arm and left leg. She also reports left groin pain and left axilla pain. No complaints of dizziness. Nose changes in visual abilities. No headache. Blood pressures are elevated. CBC/BMP: 07/14/16 0520 07/14/16 0520 Significant Findings Laboratory Tests Test 07/15/16 04:31 Triglycerides Level 164 MG/DL (42-150) LDL Cholesterol 117 MG/DL (0-99) HDL Cholesterol 37.5 MG/DL (40.0-60.0) Imaging Last Impressions Neck CTA 07/16/16 0000 Signed Impressions: Service Date/Time: Saturday, July 16, 2016 15:00 - CONCLUSION: 1. 50%% ostial stenosis of the right internal carotid. Left carotid system is patent throughout. 2. 70%% ostial stenosis of the right subclavian artery. 3. Left vertebral emanates directly from the aortic arch and appears to be the dominant vessel. Approximately 50%% stenosis of the distal left vertebral. The right vertebral appears to terminate proximal to the basilar. Darnell Donald MD Head CTA 07/16/16 Signed Impressions: Service Date/Time: Saturday, July 16, 2016 15:00 - CONCLUSION: 1. Critical stenosis versus occlusion of the very distal right vertebral artery. At least mild stenosis of the distal left vertebral artery at the junction of the basilar artery. 2. Otherwise, unremarkable CTA examination of the brain. 3. Chronic right maxillary sinusitis. Keanu Page MD Head Magnetic Resonance Angiography 07/14/16 Signed Impressions: Service Date/Time: Thursday, July 14, 2016 10:05 - CONCLUSION: 1. Nonvisualization of the right vertebral. 2. Mild stenosis at the junction of the left vert and basilar. 3. The intracranial circulation appears patent. Vicente Bowens MD Head CT 07/14/16 Signed Impressions: Service Date/Time: Thursday, July 14, 2016 05:56 - CONCLUSION: Normal examination. No evidence of acute hemorrhage or edema Helder Newby MD Carotid Artery Ultrasound 07/14/16 Signed Impressions: Service Date/Time: Thursday, July 14, 2016 09:36 - CONCLUSION: 1. Moderate, 50-69%%, stenosis of the proximal right internal carotid artery secondary to extension of bulky noncalcified plaque from the bulb. 2. Mild, less than 50%%, stenosis of the proximal left internal carotid artery secondary to mixed plaque. 3. Mild left and mild to moderate right stenosis of the external carotid origins. Keanu Page MD Brain MRI 07/14/16 Signed Impressions: Service Date/Time: Thursday, July 14, 2016 10:05 - CONCLUSION: 1. No acute intracranial abnormality. 2. Chronic small vessel ischemic change. 3. Right maxillary sinus disease. Kamar Jha Jr., MD PE at Discharge GENERAL: Normal-appearing male in NAD NECK: Supple, trachea midline. No JVD or lymphadenopathy. Muscle spasm of the neck muscle CARDIOVASCULAR: Regular rate and rhythm without murmurs, gallops, or rubs. RESPIRATORY: Breath sounds equal bilaterally. No accessory muscle use. GASTROINTESTINAL: Abdomen soft, non-tender, nondistended. MUSCULOSKELETAL: No cyanosis, or edema. Diffuse paraspinal muscle spasm involving the entire back. BACK: Nontender without obvious deformity. No CVA tenderness. Pt update on day of discharge Patient reports is feeling much better. He is anxious to go home. We discussed the imaging findings. He agreed to follow-up outpatient with his primary care physician and vascular surgery. He is aware he has vascular disease but no immediate surgery is indicated at this point. He understand the need to be compliant with antihypertensives and statin therapy. Hospital Course 66-year-old male with onset of left sided numbness and stiffness. Evaluation and treatment course detailed below: Left-sided numbness and stiffness. This was likely hypertensive encephalopathy. -Most likely secondary to stress and muscle spasms. -Patient was admitted for CVA rule out. Neurologist was consulted. MRI of the head negative for any CVA. Carotid ultrasound showed moderate, 50-69%%, stenosis of the proximal right internal carotid artery secondary to extension of bulky noncalcified plaque from the bulb and mild, less than 50%%, stenosis of the proximal left internal carotid artery secondary to mixed plaque. -Echo showed left ventricular hypertrophy with diastolic dysfunction and a normal EF. -Patient is on aspirin. -Continue Flexeril and Ativan. - CTA 50% right carotid stenosis. 70% right subclavian stenosis. right vertebral stenosis. Patient advised to follow-up with his primary care physician and outpatient vascular surgery for close monitoring. Hypertensive urgency -Initially allowed permissive hypertension due to CVA ruled out. Blood pressure much improved. Patient has some anxiety which contributes to elevation of his blood pressure. His antihypertensives were titrated to effect. He is advised to follow-up with his primary care physician to ensure he continues with adequate blood pressure control. She is discharged on amlodipine, hydrochlorothiazide, and clonidine. Stress/Anxiety -Patient was started on BuSpar. -He was given a limited dose of Ativan to help with anxiety until BuSpar takes full effect. Pt Condition on Discharge: Good Discharge Disposition: Discharge Home Discharge Time: > 30 minutes Discharge Instructions DIET: Follow Instructions for: Heart Healthy Diet Activities you can perform: Regular-No Restrictions New Medications: Amlodipine (Norvasc) 10 Mg Tab 10 MG PO DAILY #30 TAB Aspirin (Aspirin) 325 Mg Tab 325 MG PO DAILY #30 TAB Atorvastatin (Lipitor) 10 Mg Tab 10 MG PO HS #30 TAB Hydrochlorothiazide (Hydrochlorothiazide) 25 Mg Tab 25 MG PO DAILY #30 TAB Lorazepam (Ativan) 0.5 Mg Tab 1 MG PO Q6HR PRN anxiety #15 TAB Continued Medications: Buspirone (Buspirone) 5 Mg Tab 7.5 MG PO BID Control Anxiety #60 TAB (This prescription has been renewed) Clonidine (Catapres) 0.2 Mg Tab 0.2 MG PO BID Blood Pressure Management #60 TAB (This prescription has been renewed) Discontinued Medications: Lisinopril (Lisinopril) 20 Mg Tab 20 MG PO Q12HR Blood Pressure Management #60 TAB Armando Colon MD Jul 17, 2016 12:54
== END 2016-07-17 14:29 | disposition home or self-care (01) | DRG 78 ==
LOC: NEPC 04:41 → NEDA 06:55 → OBSVTOIN 07:49 → HIME 10:30 → N05A 07-16 20:28
PROVIDERS: ADMIT Family Medicine; ATTEND Family Medicine
DX: I67.4 Hypertensive encephalopathy (principal); E87.1 Hypo-osmolality and hyponatremia; I16.0 Hypertensive urgency; G81.94 Hemiplegia, unspecified affecting left nondominant side; M62.838 Other muscle spasm; F41.9 Anxiety disorder, unspecified; I70.8 Atherosclerosis of other arteries; Z87.891 Personal history of nicotine dependence; Z86.73 Personal history of transient ischemic attack (TIA), and cerebral infarction without residual deficits
CPT/HCPCS: 70450; 70496; 70498; 70544; 70551; 80048; 80061; 82948; 83036; 85025; 85610; 85730; 87641; 93225; 93226; 93306; 93880; J1644; Q9967